=== PATIENT | female | born 1990 | race Caucasian/White ===

== ENCOUNTER 2018-10-31 16:00 | Emergency (ER) | payer MEDICAID, OTHER ==
[~2018-10-31] VITALS: Ht 175.3 cm; Wt 156.9 kg
[~2018-10-31 16:00] MED LIST: ASPI81EC98 PO; FAMO-90 PO; GABA100C PO; METF500T PO
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
[2018-10-31] MEDS ORDERED: hydrOXYzine HCL 25 MG TAB PO ONE (17:15)
[2018-10-31] MEDS ORDERED: KETOROLAC 60 MG/2 ML VIAL IM ONE (17:15)
[2018-10-31 17:43] VITALS: BP 143/78
--- NOTE | 2018-10-31 17:45 | NUR ---
Patient discharged with v/s stable. Written and verbal after care instructions given and explained. Patient alert, oriented and verbalized understanding of instructions. Ambulatory with steady gait. All questions addressed prior to discharge. ID band removed. Patient advised to follow up with PMD. Rx of MOTRIN AND TAMIFLU given. Patient educated on indication of medication including possible reaction and side effects. Opportunity to ask questions provided and answered.
== END 2018-10-31 17:45 | disposition home or self-care (01) ==
LOC: MED 16:00
DX: J06.9 Acute upper respiratory infection, unspecified (principal); Z79.82 Long term (current) use of aspirin; Z79.899 Other long term (current) drug therapy
CPT/HCPCS: 96372; 99283; J1885

== ENCOUNTER 2019-12-20 07:53 | Emergency (ER) | payer OTHER ==
[~2019-12-20] VITALS: Ht 172.7 cm; Wt 170.6 kg
[2019-12-20 08:06] VITALS: BP 123/88
--- NOTE | 2019-12-20 08:11 | NUR ---
PT AMBULATED TO ER BED 8
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
--- NOTE | 2019-12-20 08:38 | NUR ---
ERMD BEDSIDE EVALUATING PT
[2019-12-20] MEDS ORDERED: predniSONE 20 MG TAB PO ONE (08:55)
[2019-12-20] MEDS ORDERED: IBUPROFEN 800 MG TAB PO ONE (08:55)
[2019-12-20] MEDS ORDERED: hydrOXYzine HCL 25 MG TAB PO ONE (08:55)
--- NOTE | 2019-12-20 09:07 | NUR ---
ADMINISTERED ORDERED MEDS TO PATIENT. PT TOLERATED WELL. PT IS SITTING BY THE BEDSIDE QUIETLY, HOLDING HER CHILDREN. PT RATES CURRENT PAIN 8/10. WILL CONTINUE TO MONITOR.
--- NOTE | 2019-12-20 11:03 | NUR ---
Patient discharged with v/s stable. Written and verbal after care instructions given and explained. Patient alert, oriented and verbalized understanding of instructions. Ambulatory with steady gait. All questions addressed prior to discharge. ID band removed. Patient advised to follow up with PMD. Rx of PROMETHAZINE, MOTRIN given. Patient educated on indication of medication including possible reaction and side effects. Opportunity to ask questions provided and answered.
[2019-12-20 11:10] VITALS: BP 123/88
== END 2019-12-20 11:03 | disposition home or self-care (01) ==
LOC: MED 07:53
DX: B34.9 Viral infection, unspecified (principal); Z79.899 Other long term (current) drug therapy
CPT/HCPCS: 99284; J7512

== ENCOUNTER 2022-04-01 22:30 | Emergency (ER) | payer OTHER ==
[~2022-04-01] VITALS: Ht 170.2 cm; Wt 186.9 kg
[~2022-04-01 22:30] MED LIST changes: +METF-346 PO; -METF500T PO
[2022-04-01 22:43] VITALS: BP 120/77
--- NOTE | 2022-04-01 22:51 | NUR ---
PATIENT TO LOBBY
--- NOTE | 2022-04-02 01:29 | NUR ---
called for patient no answer
--- NOTE | 2022-04-02 01:35 | NUR ---
called for patient no answer
--- NOTE | 2022-04-02 01:35 | NUR ---
PATIENT LEFT WITHOUT BEING SEEN BY DR. ROQUE. NO FURTHER CARE PROVIDED FOR PATIENT.
== END 2022-04-02 01:29 | disposition left against medical advice (07) ==
LOC: MED 22:30
DX: M79.10 Myalgia, unspecified site (principal); Z53.21 Procedure and treatment not carried out due to patient leaving prior to being seen by health care provider

== ENCOUNTER 2022-05-10 12:41 | Emergency (ER) | payer OTHER ==
[~2022-05-10] VITALS: Ht 170.2 cm; Wt 183.4 kg
[2022-05-10 12:58] VITALS: BP 147/86
[2022-05-10] MEDS ORDERED: ACETAMINOPHEN EXTRA STRENGTH 500 MG TAB PO ONE (13:35)
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
--- NOTE | 2022-05-10 14:18 | NUR ---
Patient was taken to [facility]
[2022-05-10] MEDS ORDERED: IBUP-2213 PO (15:21)
[2022-05-10] MEDS ORDERED: CYCL-711 PO (15:21)
[2022-05-10 15:32] VITALS: BP 149/87
--- NOTE | 2022-05-10 15:32 | NUR ---
Patient discharged with v/s stable. Written and verbal after care instructions given. Patient alert, oriented and verbalized understanding of instructions. Ambulatory with steady gait. All questions addressed prior to discharge. ID band removed. Patient advised to follow up with PMD. Rx of Flexeril and Ibuprofen given. Opportunity to ask questions provided and answered. WORK NOTE HANDED TO PATIENT.
--- NOTE | 2022-05-10 15:33 | NUR ---
Chart checked and completed. The patient's care was reviewed and supervised by Rach Rodriguez RN.
== END 2022-05-10 15:32 | disposition home or self-care (01) ==
LOC: MED 12:41
DX: S00.83XA Contusion of other part of head, initial encounter (principal); R03.0 Elevated blood-pressure reading, without diagnosis of hypertension; Z79.84 Long term (current) use of oral hypoglycemic drugs; Z79.82 Long term (current) use of aspirin; Z79.899 Other long term (current) drug therapy; W22.8XXA Striking against or struck by other objects, initial encounter; Y93.89 Activity, other specified; Y92.89 Other specified places as the place of occurrence of the external cause; Y99.8 Other external cause status
CPT/HCPCS: 70450; 70486; 99284

== ENCOUNTER 2022-06-09 15:52 | Emergency (ER) | payer OTHER ==
[~2022-06-09] VITALS: Ht 170.2 cm; Wt 186.1 kg
[~2022-06-09 15:52] MED LIST changes: +CYCL-711 PO; +IBUP-2213 PO
[2022-06-09 16:45] VITALS: BP 150/83
--- NOTE | 2022-06-09 16:45 | NUR ---
PT AMBULATED TO BED 12.
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
[2022-06-09] MEDS ORDERED: KETOROLAC 30 MG/ML VIAL IM ONE (17:30)
[2022-06-09] MEDS ORDERED: IBUP-2213 PO (17:34)
[2022-06-09 18:00] VITALS: BP 136/88
--- NOTE | 2022-06-09 18:00 | NUR ---
Patient discharged with v/s stable. Written and verbal after care instructions ABOUT ANKLE SPRAIN given and explained. Patient alert, oriented and verbalized understanding of instructions. Ambulatory with steady gait WITH PROVIDED CRUTCHES. All questions addressed prior to discharge. ID band removed. Patient advised to follow up with PMD. Rx of IBUPROFEN given. Patient educated on indication of medication including possible reaction and side effects. Opportunity to ask questions provided and answered.
== END 2022-06-09 18:00 | disposition home or self-care (01) ==
LOC: MED 15:52
DX: S93.402A Sprain of unspecified ligament of left ankle, initial encounter (principal); X58.XXXA Exposure to other specified factors, initial encounter; Y93.89 Activity, other specified; Y92.89 Other specified places as the place of occurrence of the external cause; Y99.8 Other external cause status
CPT/HCPCS: 73610; 96372; 99285; J1885; Q0092

== ENCOUNTER 2023-07-28 13:06 | Emergency (ER) | payer OTHER ==
[~2023-07-28] VITALS: Ht 170.2 cm; Wt 90.7 kg
[2023-07-28 13:41] VITALS: BP 122/59; PULSE 89; RESP 18; TEMP 98; O2SAT 98
[2023-07-28] MEDS ORDERED: KETOROLAC 30 MG/ML VIAL IM ONE (14:30)
[2023-07-28] MEDS ORDERED: KETOROLAC 30 MG/ML VIAL ONE (15:50)
[2023-07-28] MEDS ORDERED: IBUP-2218 PO (16:08)
[2023-07-28] MEDS ORDERED: LID5T TP (16:08)
[2023-07-28] MEDS ORDERED: ACET-8905 PO (16:08)
[2023-07-28 16:17] VITALS: BP 122/59; PULSE 89; RESP 18; TEMP 98; O2SAT 98
== END 2023-07-28 16:19 | disposition home or self-care (01) ==
LOC: MED 13:06
DX: M54.50 Low back pain, unspecified (principal); M25.572 Pain in left ankle and joints of left foot; Z79.899 Other long term (current) drug therapy
CPT/HCPCS: 96372; 99283; J1885

== ENCOUNTER 2023-09-20 11:17 | Emergency (ER) | payer OTHER ==
[~2023-09-20] VITALS: Ht 170.2 cm; Wt 128.8 kg
[~2023-09-20 11:17] MED LIST changes: +ACET-8905 PO; +IBUP-2218 PO; +LID5T TP
[2023-09-20 11:37] VITALS: BP 122/62; PULSE 79; RESP 16; TEMP 98.1; O2SAT 97
[2023-09-20 12:00] VITALS: BP 126/79; PULSE 84; RESP 20; TEMP 98.3; O2SAT 98
[2023-09-20] MEDS ORDERED: FAMOTIDINE 20 MG TAB PO ONE (12:05)
[2023-09-20] MEDS ORDERED: MORPHINE SULFATE 4 MG/ML SYR IVP ONE (12:05)
[2023-09-20] MEDS ORDERED: LORATADINE 10 MG TAB PO ONE (12:05)
[2023-09-20 12:10] LABS: APPEARANCE,URINE CLEAR (CLEAR); BILIRUBIN,URINE 1+ (NEGATIVE); BLOOD, URINE 3+ (NEGATIVE); COLOR,URINE YELLOW (YELLOW); LEUKOCYTE ESTERASE ,URINE TRACE (NEGATIVE); NITRITE, URINE NEGATIVE (NEGATIVE); PROTEIN,URINE 1+ (NEGATIVE); UGLUCOSE NEGATIVE (NEGATIVE); UROBILINOGEN,URINE 0.2 EU/dL (0.2 - 1)
[2023-09-20 12:53] LABS: BASOPHILS % (AUTO) 0.2 % (0.0-2.0); EOSINOPHILS # (AUTO) 0.1 K/uL (0-0.4); EOSINOPHILS % (AUTO) 0.6 % (0.0-4.0); HEMATOCRIT 33.3 % (36-48); HEMOGLOBIN 10.4 g/dL (12.0-16.0); LYMPHOCYTES # (AUTO) 2.7 K/uL (2.5-16.5); MEAN CORPUSCULAR HEMOGLOBIN 23 pg (27-31); MEAN CORPUSCULAR HGB CONC 31 g/dL (33-37); MEAN CORPUSCULAR VOLUME 73.9 fL (80-94); MONOCYTES # (AUTO) 0.6 K/uL (0.8-1.0); MONOCYTES % (AUTO) 6.7 % (1.7-9.3); NEUTROPHILS # (AUTO) 5.9 K/uL (1.8-7.7); NEUTROPHILS % (AUTO) 63.5 % (42.2-75.2); PLATELET COUNT (AUTO) 394 K/uL (140-450); RED CELL DISTRIBUTION WIDTH 15.7 % (11.6-13.7); WHITE BLOOD COUNT (AUTO) 9.2 K/uL (4.8-10.8)
[2023-09-20 13:02] LABS: ANION GAP 14.2 (8-16); CARBON DIOXIDE 27.5 mmol/L (21-32); CREATININE 0.8 mg/dL (0.6-1.3); POTASSIUM 3.7 mmol/L (3.5-5.1)
[2023-09-20 13:06] LABS: BACTERIA,URINE 3+ /HPF (None Seen); ICTOTEST NEGATIVE (NEGATIVE); SQUAMOUS EPITHELIAL CELL,UR 20-50 /LPF (0-3 (FEW)); WBC,URINE 0-5 /HPF (0-5)
[2023-09-20 13:11] LABS: ALBUMIN 3.4 g/dL (3.4-5.0); BILIRUBIN,DIRECT 0.2 mg/dL (0.0-0.3); TOTAL PROTEIN, SERUM 7.4 g/dL (6.4-8.2)
[2023-09-20] MEDS ORDERED: diphenhydrAMINE 50 MG/ML VIAL IVP ONE (13:25)
[2023-09-20] MEDS ORDERED: ATA25 PO (14:07)
[2023-09-20] MEDS ORDERED: ACET-8905 PO (14:07)
[2023-09-20] MEDS ORDERED: PRED20TA5 PO (14:07)
[2023-09-22] MEDS ORDERED: PENI500T20 PO (14:00)
== END 2023-09-20 14:35 | disposition home or self-care (01) ==
LOC: MED 11:17
DX: N13.2 Hydronephrosis with renal and ureteral calculous obstruction (principal); D50.9 Iron deficiency anemia, unspecified; B09 Unspecified viral infection characterized by skin and mucous membrane lesions; Z98.890 Other specified postprocedural states; Z79.899 Other long term (current) drug therapy; Z79.1 Long term (current) use of non-steroidal anti-inflammatories (NSAID); Z79.82 Long term (current) use of aspirin
CPT/HCPCS: 36415; 74176; 80048; 80076; 81001; 81025; 83690; 85025; 87081; 87086; 96374; 96375; 99285; J1200; J2270

== ENCOUNTER 2023-10-04 19:28 | Emergency (ER) | payer OTHER ==
[~2023-10-04] VITALS: Ht 170.2 cm; Wt 131.5 kg
[~2023-10-04 19:28] MED LIST changes: +ATA25 PO; +PENI500T20 PO; +PRED20TA5 PO
[2023-10-04 19:44] VITALS: BP 134/78; PULSE 92; RESP 18; TEMP 99.2; O2SAT 100
[2023-10-04 21:53] LABS: FLU A ANTIGEN negative (NEGATIVE); FLU B ANTIGEN negative (NEGATIVE)
[2023-10-04] MEDS ORDERED: KETOROLAC 30 MG/ML VIAL IM ONE (23:00)
[2023-10-04] MEDS ORDERED: NAPR-54 PO (23:03)
[2023-10-04] MEDS ORDERED: ROBAC PO (23:03)
[2023-10-04 23:42] VITALS: BP 129/64; PULSE 92; RESP 18; TEMP 99.2; O2SAT 100
== END 2023-10-04 23:42 | disposition home or self-care (01) ==
LOC: MED 19:28
DX: J06.9 Acute upper respiratory infection, unspecified (principal); Z20.822 Contact with and (suspected) exposure to COVID-19; Z79.899 Other long term (current) drug therapy
CPT/HCPCS: 71045; 81025; 87426; 87804; 96372; 99284; J1885; Q0092

== ENCOUNTER 2023-11-11 07:30 | Emergency (ER) | payer OTHER ==
[~2023-11-11] VITALS: Ht 165.1 cm; Wt 127.9 kg
[~2023-11-11 07:30] MED LIST changes: +NAPR-54 PO; +ROBAC PO
[2023-11-11 07:51] VITALS: BP 106/66; PULSE 80; RESP 18; TEMP 98; O2SAT 98
[2023-11-11] MEDS ORDERED: IBUPROFEN 600 MG TAB PO ONE (08:45)
[2023-11-11] MEDS ORDERED: IBUP-2218 PO (09:05)
== END 2023-11-11 09:22 | disposition home or self-care (01) ==
LOC: MED 07:30
DX: S43.122A Dislocation of left acromioclavicular joint, 100%-200% displacement, initial encounter (principal); M54.2 Cervicalgia; V49.88XA Car occupant (driver) (passenger) injured in other specified transport accidents, initial encounter; Y93.89 Activity, other specified; Y92.89 Other specified places as the place of occurrence of the external cause; Y99.8 Other external cause status
CPT/HCPCS: 73030; 99283

== ENCOUNTER 2023-12-22 11:45 | Emergency (ER) | payer OTHER ==
[~2023-12-22] VITALS: Ht 170.2 cm; Wt 118.8 kg
[2023-12-22 11:49] VITALS: BP 110/63; PULSE 81; RESP 16; TEMP 98; O2SAT 98
[2023-12-22 13:35] LABS: BASOPHILS % (AUTO) 0.9 % (0.0-2.0); EOSINOPHILS # (AUTO) 0.2 K/uL (0-0.4); EOSINOPHILS % (AUTO) 4.1 % (0.0-4.0); HEMATOCRIT 24.8 % (36-48); HEMOGLOBIN 7.9 g/dL (12.0-16.0); LYMPHOCYTES # (AUTO) 1.9 K/uL (2.5-16.5); LYMPHOCYTES % (AUTO) 33.1 % (20.5-51.1); MEAN CORPUSCULAR HEMOGLOBIN 22 pg (27-31); MEAN CORPUSCULAR HGB CONC 32 g/dL (33-37); MEAN CORPUSCULAR VOLUME 69.5 fL (80-94); MONOCYTES # (AUTO) 0.4 K/uL (0.8-1.0); MONOCYTES % (AUTO) 6.2 % (1.7-9.3); NEUTROPHILS # (AUTO) 3.2 K/uL (1.8-7.7); NEUTROPHILS % (AUTO) 55.7 % (42.2-75.2); PLATELET COUNT (AUTO) 357 K/uL (140-450); RED BLOOD CELL COUNT(AUTO) 3.57 MIL/uL (4.20-5.40); RED CELL DISTRIBUTION WIDTH 16.5 % (11.6-13.7); WHITE BLOOD COUNT (AUTO) 5.7 K/uL (4.8-10.8)
[2023-12-22 13:58] LABS: ANION GAP 10.7 (8-16); CALCIUM 8.8 mg/dL (8.5-10.1); CARBON DIOXIDE 27.1 mmol/L (21-32); CREATININE 0.6 mg/dL (0.6-1.3); POTASSIUM 3.8 mmol/L (3.5-5.1)
[2023-12-22 15:00] VITALS: BP 110/63; PULSE 81; RESP 16; TEMP 98; O2SAT 98
== END 2023-12-22 15:15 | disposition home or self-care (01) ==
LOC: MED 11:45
DX: R42 Dizziness and giddiness (principal); D50.9 Iron deficiency anemia, unspecified; Z79.899 Other long term (current) drug therapy
CPT/HCPCS: 36415; 80048; 81002; 81025; 82948; 84443; 84484; 85025; 93005; 99284

== ENCOUNTER 2024-02-09 21:46 | Emergency (ER) | payer OTHER ==
[~2024-02-09] VITALS: Ht 170.2 cm; Wt 116.6 kg
[~2024-02-09 21:46] MED LIST changes: +NAPR-337 PO; -NAPR-54 PO
[2024-02-09 21:58] VITALS: BP 112/74; PULSE 82; RESP 14; TEMP 98.3; O2SAT 100
== END 2024-02-10 00:20 | disposition home or self-care (01) ==
LOC: MED 21:46
DX: J06.9 Acute upper respiratory infection, unspecified (principal); Z79.899 Other long term (current) drug therapy
CPT/HCPCS: 99282